=== PATIENT | male | born 2000 | race African-American/Black ===

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

== ENCOUNTER 2021-08-12 20:14 | Inpatient (IN) ==
[2021-08-12] MEDS ORDERED: NS 0.9% 1000 ml BAG 1,000 ML IV ONE (20:32)
[2021-08-12] MEDS ORDERED: Morphine 4 MG/ML VIAL (1 ml) IV ONE (20:51)
[2021-08-12] MEDS ORDERED: Ondansetron 4 mg VIAL 2 MG/ML 2 ml VIAL IV ONE (20:57)
[2021-08-12] MEDS ORDERED: Ondansetron 4 mg VIAL 2 MG/ML 2 ml VIAL ONE (20:58)
[2021-08-12 21:00] LABS: ABS Basophils 0.1 10^3/ul (0-0.2); ABS Eosinophils 0.1 10^3/ul (0-0.6); ABS Lymphocytes 2.7 10^3/ul (1.0-4.8); ABS Monocytes 1.5 10^3/ul (0-0.8); ABS Neutrophils 14.3 10^3/ul (1.5-7.7); ABS Nucleated RBC 0.4 10^3/ul; Eosinophil % 0.5 %; Hematocrit 29 % (42-52); Hematocrit for Retic CNT 29 % (42-52); Hemoglobin 10.3 g/dL (14.0-18.0); Lymphocyte % 14.3 %; Mean Corpuscular HGB Conc 36 g/dL (31-36); Mean Corpuscular Hemoglobin 40 pg (27-31); Mean Corpuscular Volume 111 fL (80-94); Mean Platelet Volume 8.5 fL (7.4-10.4); Nucleated Red Blood Cells % 2.2; Platelet Count 206 10^3/uL (150-450); Red Cell Distribution Width 23 % (10-15); White Blood Count 18.7 10^3/uL (3.5-10.8)
[2021-08-12 21:05] LABS: Corrected Retic Count 6.4 % (0.5-1.5); Immature Retic Fraction 0.74
[2021-08-12 21:15] LABS: Albumin 4.8 g/dL (3.2-5.2); Albumin/Globulin Ratio 1.5 (1-3); Calcium 10.6 mg/dL (8.6-10.3); Globulin 3.2 g/dL (2-4); Potassium 3.7 mmol/L (3.5-5.0); Total Bilirubin 2.7 mg/dL (0.2-1.0); eGFR CKD-EPI 132.7 (>60)
[2021-08-12 21:21] LABS: Anisocytosis 2+; Macrocytosis 1+; Polychromasia 1+
[2021-08-12 21:22] LABS: Sickle Cells 2+
[2021-08-12] MEDS ORDERED: HYDROmorphone 1 MG/1 ML SYRINGE IV ONE (21:32)
[2021-08-12] MEDS ORDERED: HYDROmorphone 1 MG/1 ML SYRINGE IV PRN (21:33)
[2021-08-13] MEDS ORDERED: Morphine 4 MG/ML VIAL (1 ml) IV PRN (00:07)
[2021-08-13] MEDS ORDERED: Ondansetron 4 mg VIAL 2 MG/ML 2 ml VIAL IV PRN (00:08)
[2021-08-13] MEDS ORDERED: NS 0.9% 1000 ml BAG 1,000 ML IV SCH (00:15)
[2021-08-13] MEDS ORDERED: HYDROmorphone 0.5 MG/0.5 ML SYRINGE IV SLOW PU PRN (00:29)
[2021-08-13] MEDS: oxyCODONE/Acetamin 5/325 mg TAB PO PRN ×3 (03:13→21:11)
[2021-08-13 05:36] LABS: Hematocrit 27 % (42-52); Hemoglobin 9.5 g/dL (14.0-18.0); Mean Corpuscular HGB Conc 35 g/dL (31-36); Mean Corpuscular Hemoglobin 39 pg (27-31); Mean Corpuscular Volume 112 fL (80-94); Mean Platelet Volume 8.3 fL (7.4-10.4); Platelet Count 216 10^3/uL (150-450); Red Blood Count 2.45 10^6 /uL (4.18-5.48); Red Cell Distribution Width 22 % (10-15); White Blood Count 20.3 10^3/uL (3.5-10.8)
[2021-08-13 05:52] LABS: Albumin 4.5 g/dL (3.2-5.2); Albumin/Globulin Ratio 1.5 (1-3); Calcium 10.1 mg/dL (8.6-10.3); Direct Bilirubin 0.5 mg/dL (0.03-0.18); Indirect Bilirubin 1.5 mg/dL (0.3-1.0); Total Protein 7.5 g/dL (6.4-8.9); eGFR CKD-EPI 135.6 (>60)
[2021-08-13 05:55] LABS: Anisocytosis 2+; Basophilic Stippling 2+; Polychromasia 2+
[2021-08-13 05:56] LABS: ABS Basophils 0.2 10^3/ul (0-0.2); ABS Lymphocytes 3.1 10^3/ul (1.0-4.8); ABS Monocytes 3.2 10^3/ul (0-0.8); ABS Neutrophils 13.7 10^3/ul (1.5-7.7); ABS Nucleated RBC 0.5 10^3/ul; Eosinophil % 0.2 %; Lymphocyte % 15.5 %; Macrocytosis 2+; Nucleated Red Blood Cells % 2.6; Sickle Cells 3+
[2021-08-13] MEDS: Multivitamins/Minerals TAB PO SCH (08:41)
[2021-08-13] MEDS: cefTRIAXone 1 gm/50 mL NS BAG 1 GM/50 ML BAG IVPB SCH (11:16)
[2021-08-13] MEDS: HYDROmorphone 0.5 MG/0.5 ML SYRINGE IV SLOW PU PRN ×4 (11:17→18:08)
[2021-08-13 12:37] LABS: Urine Appearance Clear; Urine Bilirubin Negative (Negative); Urine Blood Negative (Negative); Urine Color Straw; Urine Glucose Negative (Negative); Urine Ketones Negative (Negative); Urine Nitrite Negative (Negative); Urine Protein Negative (Negative); Urine Specific Gravity 1.002 (1.002-1.030); Urine Urobilinogen Negative (Negative)
[2021-08-13] MEDS: NS 0.45% 1000 ml BAG 1,000 ML IV SCH ×2 (13:44→22:57)
[2021-08-13] MEDS: Magnesium Hydroxide LIQ 30 ML UDC PO SCH (23:04)
[2021-08-14] MEDS: oxyCODONE/Acetamin 5/325 mg TAB PO PRN ×5 (02:41→21:20)
[2021-08-14 06:42] LABS: Immature Retic Fraction 0.75; RBC Retic Count 2.49 10^6/uL (4.18-5.48); Red Blood Count 2.49 10^6 /uL (4.18-5.48)
[2021-08-14 06:44] LABS: Corrected Retic Count 6.1 % (0.5-1.5); Hematocrit 28 % (42-52); Hematocrit for Retic CNT 28 % (42-52); Hemoglobin 9.8 g/dL (14.0-18.0); Mean Corpuscular HGB Conc 35 g/dL (31-36); Mean Corpuscular Hemoglobin 40 pg (27-31); Mean Corpuscular Volume 112 fL (80-94); Mean Platelet Volume 8.7 fL (7.4-10.4); Platelet Count 297 10^3/uL (150-450); Red Cell Distribution Width 22 % (10-15); White Blood Count 20.3 10^3/uL (3.5-10.8)
[2021-08-14 06:49] LABS: Calcium 9.7 mg/dL (8.6-10.3); Potassium 3.9 mmol/L (3.5-5.0); eGFR CKD-EPI 140.1 (>60)
[2021-08-14] MEDS: Magnesium Hydroxide LIQ 30 ML UDC PO SCH ×2 (08:31→21:20)
[2021-08-14] MEDS: Multivitamins/Minerals TAB PO SCH (08:33)
[2021-08-14 08:40] LABS: ABS Basophils 0.2 10^3/ul (0-0.2); ABS Eosinophils 0.4 10^3/ul (0-0.6); ABS Lymphocytes 4.5 10^3/ul (1.0-4.8); ABS Monocytes 3.8 10^3/ul (0-0.8); ABS Neutrophils 11.5 10^3/ul (1.5-7.7); ABS Nucleated RBC 0.4 10^3/ul; Eosinophil % 1.9 %; Lymphocyte % 22.1 %; Nucleated Red Blood Cells % 1.8
[2021-08-14] MEDS: NS 0.45% 1000 ml BAG 1,000 ML IV SCH ×2 (09:09→20:09)
[2021-08-14 10:31] LABS: C Reactive Protein 110.43 mg/L (<8.01)
[2021-08-14] MEDS: Enoxaparin 40 MG/0.4 ML SYR SUBCUT SCH (10:48)
[2021-08-14] MEDS: cefTRIAXone 1 gm/50 mL NS BAG 1 GM/50 ML BAG IVPB SCH (10:51)
[2021-08-14] MEDS: Senna TAB 8.6 mg TAB PO SCH (11:25)
[2021-08-15] MEDS: oxyCODONE/Acetamin 5/325 mg TAB PO PRN ×3 (03:00→12:06)
[2021-08-15] MEDS: NS 0.45% 1000 ml BAG 1,000 ML IV SCH (06:07)
[2021-08-15 06:17] LABS: ABS Basophils 0.1 10^3/ul (0-0.2); ABS Eosinophils 0.3 10^3/ul (0-0.6); ABS Lymphocytes 2.4 10^3/ul (1.0-4.8); ABS Monocytes 3.2 10^3/ul (0-0.8); ABS Neutrophils 13.2 10^3/ul (1.5-7.7); ABS Nucleated RBC 0.3 10^3/ul; Eosinophil % 1.6 %; Hematocrit 25 % (42-52); Hemoglobin 8.9 g/dL (14.0-18.0); Lymphocyte % 12.3 %; Mean Corpuscular HGB Conc 36 g/dL (31-36); Mean Corpuscular Hemoglobin 39 pg (27-31); Mean Corpuscular Volume 111 fL (80-94); Mean Platelet Volume 8.5 fL (7.4-10.4); Nucleated Red Blood Cells % 1.3; Platelet Count 356 10^3/uL (150-450); Red Blood Count 2.26 10^6 /uL (4.18-5.48); Red Cell Distribution Width 20 % (10-15); White Blood Count 19.2 10^3/uL (3.5-10.8)
[2021-08-15 06:26] LABS: C Reactive Protein 131.34 mg/L (<8.01); Calcium 9.5 mg/dL (8.6-10.3); Potassium 3.7 mmol/L (3.5-5.0); eGFR CKD-EPI 141.6 (>60)
[2021-08-15] MEDS: Senna TAB 8.6 mg TAB PO SCH (07:36)
[2021-08-15] MEDS: Magnesium Hydroxide LIQ 30 ML UDC PO SCH (07:36)
[2021-08-15] MEDS: Multivitamins/Minerals TAB PO SCH (07:37)
[2021-08-15] MEDS: cefTRIAXone 1 gm/50 mL NS BAG 1 GM/50 ML BAG IVPB SCH (10:09)
[2021-08-15] MEDS: Enoxaparin 40 MG/0.4 ML SYR SUBCUT SCH (10:38)
[2021-08-15 11:28] VITALS: BP 109/47
== END 2021-08-15 16:40 | disposition home or self-care (01) | DRG 662 ==
LOC: EDHOLD 20:14 → ED 20:14 → SUATTDRO 08-13 00:08 → MED 08-13 14:41
PROVIDERS: ADMIT Internal Medicine; ATTEND Internal Medicine

== ENCOUNTER 2021-11-08 20:52 | Inpatient (IN) ==
[2021-11-08] MEDS ORDERED: Lactated Ringers 1000 ml BAG 1,000 ML IV ONE (20:57)
[2021-11-08] MEDS ORDERED: HYDROmorphone 1 MG/1 ML SYRINGE IV ONE ×2 (21:01→21:58)
[2021-11-08 21:33] LABS: ABS Basophils 0.1 10^3/ul (0-0.2); ABS Eosinophils 0.1 10^3/ul (0-0.6); ABS Lymphocytes 2.3 10^3/ul (1.0-4.8); ABS Monocytes 2.1 10^3/ul (0-0.8); ABS Nucleated RBC 0.7 10^3/ul; Corrected Retic Count 4.2 % (0.5-1.5); Eosinophil % 0.5 %; Hematocrit 26 % (42-52); Hematocrit for Retic CNT 26 % (42-52); Immature Retic Fraction 0.73; Lymphocyte % 9.7 %; Mean Corpuscular HGB Conc 35 g/dL (31-36); Mean Corpuscular Hemoglobin 38 pg (27-31); Mean Corpuscular Volume 109 fL (80-94); Mean Platelet Volume 8.1 fL (7.4-10.4); Nucleated Red Blood Cells % 3.1; Platelet Count 166 10^3/uL (150-450); Red Cell Distribution Width 24 % (10-15); White Blood Count 23.5 10^3/uL (3.5-10.8)
[2021-11-08 21:57] LABS: Albumin 4.4 g/dL (3.2-5.2); Albumin/Globulin Ratio 1.4 (1-3); Calcium 9.7 mg/dL (8.6-10.3); Globulin 3.1 g/dL (2-4); Potassium 3.9 mmol/L (3.5-5.0); Total Bilirubin 2.4 mg/dL (0.2-1.0); Total Protein 7.5 g/dL (6.4-8.9); eGFR CKD-EPI 138.8 (>60)
[2021-11-08] MEDS ORDERED: cefTRIAXone 1 gm/50 mL D5W 1 GM/50 ML BAG IV ONE (22:02)
[2021-11-08] MEDS ORDERED: Azithromycin 500 mg/250 ml NS 500 MG/250 ML BAG IVPB ONE (22:02)
[2021-11-09] MEDS: HYDROmorphone 1 MG/1 ML SYRINGE IV SLOW PU PRN ×5 (00:12→21:11)
[2021-11-09] MEDS: Benzocaine/Menthol LOZ PO PRN ×2 (02:49→12:18)
[2021-11-09] MEDS: NORMOSOL-R pH 7.4 1000 mL BAG 1,000 ML IV SCH ×2 (05:12→17:41)
[2021-11-09] MEDS ORDERED: Azithromycin 500 mg/250 ml NS 500 MG/250 ML BAG IVPB SCH (06:00)
[2021-11-09] MEDS: Enoxaparin 40 MG/0.4 ML SYR SUBCUT SCH ×2 (06:04→23:39)
[2021-11-09] MEDS: Acetaminophen IV 1 GM/100ML 100 ML IV SCH ×4 (06:04→22:40)
[2021-11-09 06:31] LABS: ABS Basophils 0.1 10^3/ul (0-0.2); ABS Eosinophils 0.1 10^3/ul (0-0.6); ABS Lymphocytes 3.4 10^3/ul (1.0-4.8); ABS Monocytes 2.9 10^3/ul (0-0.8); ABS Neutrophils 14.1 10^3/ul (1.5-7.7); ABS Nucleated RBC 0.9 10^3/ul; Eosinophil % 0.6 %; Hematocrit 24 % (42-52); Hemoglobin 8.5 g/dL (14.0-18.0); Lymphocyte % 16.4 %; Mean Corpuscular HGB Conc 35 g/dL (31-36); Mean Corpuscular Hemoglobin 38 pg (27-31); Mean Corpuscular Volume 109 fL (80-94); Mean Platelet Volume 7.8 fL (7.4-10.4); Nucleated Red Blood Cells % 4.3; Platelet Count 146 10^3/uL (150-450); Red Blood Count 2.24 10^6 /uL (4.18-5.48); Red Cell Distribution Width 25 % (10-15); White Blood Count 20.7 10^3/uL (3.5-10.8)
[2021-11-09 07:13] LABS: Albumin/Globulin Ratio 1.5 (1-3); Calcium 9.3 mg/dL (8.6-10.3); Globulin 2.7 g/dL (2-4); Magnesium 1.5 mg/dL (1.9-2.7); Potassium 3.8 mmol/L (3.5-5.0); Total Bilirubin 1.6 mg/dL (0.2-1.0); Total Protein 6.7 g/dL (6.4-8.9); eGFR CKD-EPI 140.7 (>60)
[2021-11-09] MEDS ORDERED: Magnesium Sulf 4 GM/100 ML IV 4,000 MG/100 ML BAG IVPB ONE (07:54)
[2021-11-09 07:59] LABS: Anisocytosis 2+; Polychromasia 1+; Sickle Cells 2+
[2021-11-09 08:41] LABS: Urine Appearance Clear; Urine Bilirubin Negative (Negative); Urine Blood Negative (Negative); Urine Color Yellow; Urine Glucose Negative (Negative); Urine Ketones Trace (Negative); Urine Nitrite Negative (Negative); Urine Protein Negative (Negative); Urine Specific Gravity 1.006 (1.002-1.030); Urine Urobilinogen Negative (Negative)
[2021-11-09] MEDS ORDERED: HYDROmorphone 1 MG/1 ML SYRINGE IV SLOW PU PRN (10:50)
[2021-11-09] MEDS ORDERED: oxyCODONE/Acetamin 5/325 mg TAB PO PRN (13:53)
[2021-11-09] MEDS: cefTRIAXone 1 gm/50 mL D5W 1 GM/50 ML BAG IV SCH (21:11)
[2021-11-10] MEDS: HYDROmorphone 1 MG/1 ML SYRINGE IV SLOW PU PRN ×5 (02:38→20:35)
[2021-11-10] MEDS: NORMOSOL-R pH 7.4 1000 mL BAG 1,000 ML IV SCH (02:41)
[2021-11-10 05:29] LABS: ABS Basophils 0.1 10^3/ul (0-0.2); ABS Eosinophils 0.1 10^3/ul (0-0.6); ABS Lymphocytes 4.1 10^3/ul (1.0-4.8); ABS Monocytes 3.1 10^3/ul (0-0.8); ABS Neutrophils 13.7 10^3/ul (1.5-7.7); ABS Nucleated RBC 0.8 10^3/ul; Eosinophil % 0.6 %; Hematocrit 26 % (42-52); Hemoglobin 8.9 g/dL (14.0-18.0); Lymphocyte % 19.4 %; Mean Corpuscular HGB Conc 35 g/dL (31-36); Mean Corpuscular Hemoglobin 38 pg (27-31); Mean Corpuscular Volume 109 fL (80-94); Mean Platelet Volume 8.5 fL (7.4-10.4); Nucleated Red Blood Cells % 3.7; Platelet Count 132 10^3/uL (150-450); Red Blood Count 2.34 10^6 /uL (4.18-5.48); Red Cell Distribution Width 27 % (10-15); White Blood Count 21.2 10^3/uL (3.5-10.8)
[2021-11-10] MEDS: Acetaminophen IV 1 GM/100ML 100 ML IV SCH ×3 (05:40→16:48)
[2021-11-10 06:01] LABS: Potassium 4.2 mmol/L (3.5-5.0); eGFR CKD-EPI 141.4 (>60)
[2021-11-10 06:02] LABS: Albumin 3.9 g/dL (3.2-5.2); Albumin/Globulin Ratio 1.3 (1-3); Globulin 2.9 g/dL (2-4); Magnesium 1.7 mg/dL (1.9-2.7); Total Bilirubin 2.4 mg/dL (0.2-1.0); Total Protein 6.8 g/dL (6.4-8.9)
[2021-11-10] MEDS: Benzocaine/Menthol LOZ PO PRN (06:06)
[2021-11-10] MEDS ORDERED: Magnesium Sulfate IV 3 GM in NS 0.9% 100 ml BAG 100 ML IVPB ONE (06:55)
[2021-11-10] MEDS ORDERED: Magnesium Sulfate 2 GM IV (Premix) IVPB ONE (07:00)
[2021-11-10] MEDS ORDERED: Magnesium Sulfate 1 GM IV 1 GM/100 ML BAG IV ONE (08:00)
[2021-11-10] MEDS: Magnesium Hydroxide LIQ 30 ML UDC PO PRN ×2 (10:07→20:26)
[2021-11-10 11:50] LABS: Corrected Retic Count 4.6 % (0.5-1.5); Hematocrit for Retic CNT 26 % (42-52); Immature Retic Fraction 0.67; RBC Retic Count 2.34 10^6/uL (4.18-5.48)
[2021-11-10] MEDS ORDERED: Iohexol 350 (CONTRAST) 500 ML MDV IV ONE (14:39)
[2021-11-10] MEDS: NS 0.45% 1000 ml BAG 1,000 ML IV SCH (19:55)
[2021-11-10] MEDS: Polyethylene Glycol 3350 17 GM PACKET PO SCH (20:03)
[2021-11-10] MEDS: cefTRIAXone 1 gm/50 mL D5W 1 GM/50 ML BAG IV SCH (20:35)
[2021-11-10] MEDS: Enoxaparin 40 MG/0.4 ML SYR SUBCUT SCH (23:38)
[2021-11-11] MEDS: HYDROmorphone 1 MG/1 ML SYRINGE IV SLOW PU PRN ×3 (01:18→13:49)
[2021-11-11] MEDS: Acetaminophen IV 1 GM/100ML 100 ML IV SCH ×5 (03:13→23:35)
[2021-11-11] MEDS: NS 0.45% 1000 ml BAG 1,000 ML IV SCH ×2 (05:56→17:26)
[2021-11-11 06:26] LABS: Hematocrit 24 % (42-52); Hemoglobin 8.3 g/dL (14.0-18.0); Mean Corpuscular HGB Conc 35 g/dL (31-36); Mean Corpuscular Hemoglobin 38 pg (27-31); Mean Corpuscular Volume 108 fL (80-94); Mean Platelet Volume 8.4 fL (7.4-10.4); Platelet Count 135 10^3/uL (150-450); Red Blood Count 2.21 10^6 /uL (4.18-5.48); Red Cell Distribution Width 24 % (10-15); White Blood Count 19.5 10^3/uL (3.5-10.8)
[2021-11-11 06:34] LABS: Albumin 3.6 g/dL (3.2-5.2); Albumin/Globulin Ratio 1.3 (1-3); Calcium 8.7 mg/dL (8.6-10.3); Globulin 2.7 g/dL (2-4); Magnesium 1.7 mg/dL (1.9-2.7); Potassium 3.9 mmol/L (3.5-5.0); Total Bilirubin 1.6 mg/dL (0.2-1.0); Total Protein 6.3 g/dL (6.4-8.9); eGFR CKD-EPI 141.4 (>60)
[2021-11-11] MEDS: Polyethylene Glycol 3350 17 GM PACKET PO SCH ×2 (08:32→20:27)
[2021-11-11] MEDS: Benzocaine/Menthol LOZ PO PRN ×2 (09:24→16:09)
[2021-11-11] MEDS: guaiFENesin 100 mg/5 ml LIQ unit dose cup PO PRN ×2 (18:15→23:23)
[2021-11-11] MEDS: cefTRIAXone 1 gm/50 mL D5W 1 GM/50 ML BAG IV SCH (21:13)
[2021-11-11] MEDS: Enoxaparin 40 MG/0.4 ML SYR SUBCUT SCH (23:22)
[2021-11-12] MEDS: NS 0.45% 1000 ml BAG 1,000 ML IV SCH ×2 (05:21→16:37)
[2021-11-12] MEDS: Acetaminophen IV 1 GM/100ML 100 ML IV SCH ×4 (05:28→23:17)
[2021-11-12 06:46] LABS: ABS Basophils 0.1 10^3/ul (0-0.2); ABS Eosinophils 0.2 10^3/ul (0-0.6); ABS Lymphocytes 2.7 10^3/ul (1.0-4.8); ABS Monocytes 2.7 10^3/ul (0-0.8); ABS Nucleated RBC 0.2 10^3/ul; Eosinophil % 1.1 %; Hematocrit 24 % (42-52); Hemoglobin 8.3 g/dL (14.0-18.0); Lymphocyte % 13.7 %; Mean Corpuscular HGB Conc 35 g/dL (31-36); Mean Corpuscular Hemoglobin 38 pg (27-31); Mean Corpuscular Volume 108 fL (80-94); Mean Platelet Volume 8.5 fL (7.4-10.4); Nucleated Red Blood Cells % 1.1; Platelet Count 177 10^3/uL (150-450); Red Blood Count 2.21 10^6 /uL (4.18-5.48); Red Cell Distribution Width 23 % (10-15); White Blood Count 19.7 10^3/uL (3.5-10.8)
[2021-11-12] MEDS: Polyethylene Glycol 3350 17 GM PACKET PO SCH ×2 (08:26→21:16)
[2021-11-12] MEDS: HYDROmorphone 1 MG/1 ML SYRINGE IV SLOW PU PRN (08:28)
[2021-11-12] MEDS: Benzocaine/Menthol LOZ PO PRN (08:28)
[2021-11-12 08:58] LABS: Calcium 9.3 mg/dL (8.6-10.3); Magnesium 1.8 mg/dL (1.9-2.7); Potassium 4.4 mmol/L (3.5-5.0); eGFR CKD-EPI 146.2 (>60)
[2021-11-12] MEDS ORDERED: Magnesium Sulfate 2 gm BAG 2 GM/50 ML BAG IVPB ONE (09:41)
[2021-11-12] MEDS: guaiFENesin 100 mg/5 ml LIQ unit dose cup PO PRN ×2 (12:30→22:41)
[2021-11-12] MEDS: cefTRIAXone 1 gm/50 mL D5W 1 GM/50 ML BAG IV SCH (21:16)
[2021-11-12] MEDS: Enoxaparin 40 MG/0.4 ML SYR SUBCUT SCH (23:17)
[2021-11-13] MEDS: NS 0.45% 1000 ml BAG 1,000 ML IV SCH ×2 (04:55→15:46)
[2021-11-13] MEDS: Acetaminophen IV 1 GM/100ML 100 ML IV SCH ×2 (04:59→12:54)
[2021-11-13] MEDS: Polyethylene Glycol 3350 17 GM PACKET PO SCH (08:02)
[2021-11-13] MEDS: HYDROmorphone 1 MG/1 ML SYRINGE IV SLOW PU PRN (08:58)
[2021-11-13 09:51] LABS: ABS Basophils 0.1 10^3/ul (0-0.2); ABS Eosinophils 0.5 10^3/ul (0-0.6); ABS Lymphocytes 2.4 10^3/ul (1.0-4.8); ABS Monocytes 2.4 10^3/ul (0-0.8); ABS Neutrophils 12.1 10^3/ul (1.5-7.7); ABS Nucleated RBC 0.2 10^3/ul; Eosinophil % 3.1 %; Hematocrit 22 % (42-52); Lymphocyte % 13.5 %; Mean Corpuscular HGB Conc 36 g/dL (31-36); Mean Corpuscular Hemoglobin 38 pg (27-31); Mean Corpuscular Volume 107 fL (80-94); Mean Platelet Volume 8.4 fL (7.4-10.4); Platelet Count 291 10^3/uL (150-450); Red Blood Count 2.08 10^6 /uL (4.18-5.48); Red Cell Distribution Width 22 % (10-15); White Blood Count 17.6 10^3/uL (3.5-10.8)
[2021-11-13 14:51] VITALS: BP 114/54
== END 2021-11-13 16:20 | disposition home or self-care (01) | DRG 662 ==
LOC: ED 20:52 → EDHOLD 20:52 → MED 11-09 11:55 → SUATTDRO 11-09 15:18
PROVIDERS: ADMIT Student in an Organized Health Care Education/Training Program; ATTEND Internal Medicine